=== PATIENT | male | born 2000 | race Caucasian/White ===

== ENCOUNTER 2018-07-03 22:33 | Emergency (ER) | payer MEDICAID, SELFPAY ==
[2018-07-03 22:34] VITALS: BP 158/113; PULSE 114; RESP 15; TEMP 39.1; O2SAT 96; BMI 23.1
--- NOTE | 2018-07-03 23:02 | RAD_ITS ---
We are attempting to reach Greg Rose MD to discuss findings. An addendum with communication details will be sent when the communication is complete. STUDY: X-RAY CHEST REASON FOR EXAM: Male, 17 years old. Cough, fever TECHNIQUE: PA and lateral views of the chest. COMPARISON: April 16, 2016 FINDINGS: Since prior study there is been a development of a focal infiltrate within the right lower lobe. There is no demonstrated pleural abnormality. Normal size heart. Normal mediastinum and luz. Normal visualized pulmonary arteries. Normal visualized aortic arch and descending thoracic aorta. Normal visualized thoracic spine. Normal visualized ribs, clavicles, and shoulders. There is no demonstrated abnormality of the visualized soft tissue structures of the upper abdomen. RAD/Chest PA and Lateral IMPRESSION: Findings highly consistent with right lower lobe pneumonia. Electronically Signed: Barb Fisher MD at 23:32 EDT Tel , Service support ,
[2018-07-03] MEDS: Acetaminophen 500 MG Tablet 1000 MG PO (23:09)
--- NOTE | 2018-07-03 23:09 | ED.VIS.GEN ---
History of Present Illness Chief Complaint: Fever Informant: Patient Onset: Days - 3 Context: Gradual Onset Timing: Continuous Quality: malaise Location: all over Current Severity: Moderate Maximum Severity: Moderate Worsened by: coughing Relieved by: nothing Associated Symptoms: Myalgias, chills, nonproductive cough, soreness across low chest w/ cough Narrative: Also headaches. No neck stiffness. No influenza vaccine this season. No known sick contacts. Healthy otherwise. No dyspnea. Recent Illness/Hospitalization: No Past Medical History - Allergies and Home Meds Allergies/Adverse Reactions: Allergies No Known Allergies Allergy (Verified 07/03/18 22:39) Primary Care Physician: Karen Paz MD [Primary Care Provider] - Past Medical History: None Smoking Status: Never smoker Review of Systems General: Reports: Chills, Fever, Malaise Eyes: Denies: Visual changes - bilaterally, Diplopia ENT: Denies: Bilateral ear pain, Rhinorrhea, Sore throat Cardiovascular: Denies: Chest pain, Palpitations Respiratory: Reports: Cough. Denies: Dyspnea, Dyspnea on exertion Gastrointestinal: Reports: Abdominal pain - soreness w/ coughing, Diarrhea. Denies: Nausea, Vomiting, Melena, Hematochezia Genitourinary: Denies: Dysuria, Hematuria, Frequency Musculoskeletal: Reports: Myalgias, Extremity Pain - achy. Denies: Back pain, Swelling Skin: Denies: Rash, Abrasions, Wounds Neurological: Reports: Parasthesia. Denies: Headache, Weakness, Numbness Physical Exam Vital Signs/Narrative: Vital Signs Temp Pulse Resp BP Pulse Ox 07/03/18 22:34 102.3 F H 114 H 15 158/113 H 96 Inital Vital Signs reviewed: Yes General: Well nourished, Well developed, No Acute Distress Head: Normocephalic, Atraumatic Eyes: Perrl, EOMI ENT: Moist mucous membranes, No rhinorrhea, TM's clear - and normal mastoids., Nasal congestion. Negative for: Sinus tenderness Neck: Supple - no meningismus. FROM w/o difficulty., Nontender, No lymphadenopathy Cardiovascular: Regular rate, Regular rhythm, No murmurs, Tachycardia Respiratory: No distress, Chest nontender, Rales - R base Abdomen: Soft, Nontender, Nondistended, Normal bowel sounds Back: Nontender, Normal Inspection. Negative for: CVA tenderness Extremities: Nontender, No edema. Negative for: Calf Tenderness Skin: Normal color, No rash, No Trauma Neurological: Alert, Oriented x3, Cranial nerves II-XII grossly intact, Normal Strength, Normal Sensation Psychological: Normal affect, Normal Mood Diagnostic/Tx/Re-eval Impressions Chest X-Ray 07/03/18 23:02 IMPRESSION: Findings highly consistent with right lower lobe pneumonia. Electronically Signed: Barb Fisher MD at 23:32 EDT Tel , Service support , ADDENDUM: 07/03/18 2343 IMPRESSION: Findings highly consistent with right lower lobe pneumonia. N.B. : The above information has been verbally conveyed by Barb Fisher MD to Dr. Greg Rose MD, on 07/03/2018 23:36:32 (ET). Electronically Signed: Barb Fisher MD at 23:32 EDT Tel , Service support , 07/03/18 23:02 Chest PA and Lateral [RAD] Stat 07/04/18 00:11 Mucosa - Nose Influenza Types A,B Direct FA (AFIA) - Final -- NEGATIVE Laboratory Results 07/03/18 07/03/18 07/03/18 23:55 23:55 23:55 WBC 10.9 RBC 4.28 L Hgb 12.1 L Hct 35.5 L MCV 82.9 MCH 28.3 MCHC 34.1 RDW 12.5 RDW Differential 37.9 Plt Count 281 MPV 9.2 Immature Gran % (Auto) 0.100 Neut % (Auto) 73.9 H Lymph % (Auto) 10.0 L [place] % (Auto) 14.7 H Eos % (Auto) 0.8 Baso % (Auto) 0.5 Absolute Neuts (auto) 8.0 H Absolute Lymphs (auto) 1.09 Total Counted Not Reportable Differential Comment SCANNED Platelet Estimate ADEQUATE PT 15.4 H INR 1.2 APTT 36.4 H Sodium 134 L Potassium 3.4 L Chloride 102 Carbon Dioxide 26.0 Anion Gap 6 BUN 7 Creatinine 0.81 Estim Creat Clear Calc 151.46 Est GFR (MDRD) Af Amer 157 Est GFR (MDRD) Non-Af 130 BUN/Creatinine Ratio 8.6 L Glucose 126 H Lactic Acid Calcium 8.2 L Total Bilirubin 0.80 AST 12 L ALT 13 L Alkaline Phosphatase 76 Total Protein 7.5 Albumin 3.3 Globulin 4.2 Albumin/Globulin Ratio 0.8 L Urine Color Urine Clarity Urine pH Ur Specific [place] Urine Protein Urine Glucose (UA) Urine Ketones Urine Occult Blood Urine Nitrite Urine Bilirubin Urine Urobilinogen Ur Leukocyte Esterase Urine RBC Urine WBC Ur Squamous Epith Cells Urine Bacteria Urine Mucus 07/03/18 07/04/18 23:55 00:30 WBC RBC Hgb Hct MCV MCH MCHC RDW RDW Differential Plt Count MPV Immature Gran % (Auto) Neut % (Auto) Lymph % (Auto) [place] % (Auto) Eos % (Auto) Baso % (Auto) Absolute Neuts (auto) Absolute Lymphs (auto) Total Counted Differential Comment Platelet Estimate PT INR APTT Sodium Potassium Chloride Carbon Dioxide Anion Gap BUN Creatinine Estim Creat Clear Calc Est GFR (MDRD) Af Amer Est GFR (MDRD) Non-Af BUN/Creatinine Ratio Glucose Lactic Acid 0.8 Calcium Total Bilirubin AST ALT Alkaline Phosphatase Total Protein Albumin Globulin Albumin/Globulin Ratio Urine Color Yellow Urine Clarity Sl. Cloudy Urine pH 7.0 Ur Specific [place] 1.005 Urine Protein Negative Urine Glucose (UA) Normal Urine Ketones 5 H Urine Occult Blood 50 H Urine Nitrite Negative Urine Bilirubin Negative Urine Urobilinogen Normal Ur Leukocyte Esterase Negative Urine RBC 0-5 SEEN Urine WBC 0 SEEN Ur Squamous Epith Cells 0 SEEN Urine Bacteria 0 SEEN Urine Mucus 0 SEEN - Medical Decision Making Given abnormal lung sounds/findings right lower lobe, chest x-ray was obtained in addition to an influenza. Patient appears well clinically. X-ray shows pneumonia. Septic workup ordered and pending. Antibiotics also ordered simultaneously. His workup is fairly unremarkable. His lactate is within normal limits, no significant white blood count, we did send blood cultures. He is feeling a little better after Tylenol and Toradol. His temperature has come down. His influenza is negative. We ambulated him and he did not become hypoxia are very dyspneic and he is comfortable going home with outpatient treatment. I advise close outpatient follow-up. He states he does have prescription coverage and will be able to fill an antibiotic that we prescribed him. 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 He is referred to the next doctor on the no-Doc list, Dr. Tony. ED Disposition - Plan for ED Patient: Disposition: Home or Assisted Living Diagnosis: Community acquired pneumonia, Sepsis Instructions: ED Pneumonia Adult Prescriptions: levoFLOXacin tablet [Levaquin tablet] 750 mg PO QHS #4 tab Referrals: Nic Tony DO [NON CLINICAL AFFILIATE] - (call friday for appt to be seen within next 2-5 days)
[2018-07-03] MEDS: Ketorolac 60 MG/2 ML Vial IM (23:10)
--- NOTE | 2018-07-03 23:12 | ED.DCSUM_ITS ---
History of Present Illness Chief Complaint: Fever Informant: Patient Onset: Days - 3 Context: Gradual Onset Timing: Continuous Quality: malaise Location: all over Current Severity: Moderate Maximum Severity: Moderate Worsened by: coughing Relieved by: nothing Associated Symptoms: Myalgias, chills, nonproductive cough, soreness across low chest w/ cough Narrative: Also headaches. No neck stiffness. No influenza vaccine this season. No known sick contacts. Healthy otherwise. No dyspnea. Recent Illness/Hospitalization: No Past Medical History - Allergies and Home Meds Allergies/Adverse Reactions: Allergies No Known Allergies Allergy (Verified 07/03/18 22:39) Primary Care Physician: Karen Paz MD [Primary Care Provider] - Past Medical History: None Smoking Status: Never smoker Review of Systems General: Reports: Chills, Fever, Malaise Eyes: Denies: Visual changes - bilaterally, Diplopia ENT: Denies: Bilateral ear pain, Rhinorrhea, Sore throat Cardiovascular: Denies: Chest pain, Palpitations Respiratory: Reports: Cough. Denies: Dyspnea, Dyspnea on exertion Gastrointestinal: Reports: Abdominal pain - soreness w/ coughing, Diarrhea. Denies: Nausea, Vomiting, Melena, Hematochezia Genitourinary: Denies: Dysuria, Hematuria, Frequency Musculoskeletal: Reports: Myalgias, Extremity Pain - achy. Denies: Back pain, Swelling Skin: Denies: Rash, Abrasions, Wounds Neurological: Reports: Parasthesia. Denies: Headache, Weakness, Numbness Physical Exam Vital Signs/Narrative: Vital Signs Temp Pulse Resp BP Pulse Ox 07/03/18 22:34 102.3 F H 114 H 15 158/113 H 96 Inital Vital Signs reviewed: Yes General: Well nourished, Well developed, No Acute Distress Head: Normocephalic, Atraumatic Eyes: Perrl, EOMI ENT: Moist mucous membranes, No rhinorrhea, TM's clear - and normal mastoids., Nasal congestion. Negative for: Sinus tenderness Neck: Supple - no meningismus. FROM w/o difficulty., Nontender, No lymphadenopathy Cardiovascular: Regular rate, Regular rhythm, No murmurs, Tachycardia Respiratory: No distress, Chest nontender, Rales - R base Abdomen: Soft, Nontender, Nondistended, Normal bowel sounds Back: Nontender, Normal Inspection. Negative for: CVA tenderness Extremities: Nontender, No edema. Negative for: Calf Tenderness Skin: Normal color, No rash, No Trauma Neurological: Alert, Oriented x3, Cranial nerves II-XII grossly intact, Normal Strength, Normal Sensation Psychological: Normal affect, Normal Mood Diagnostic/Tx/Re-eval Impressions Chest X-Ray 07/03/18 23:02 IMPRESSION: Findings highly consistent with right lower lobe pneumonia. Electronically Signed: Barb Fisher MD at 23:32 EDT Tel , Service support , ADDENDUM: 07/03/18 2343 IMPRESSION: Findings highly consistent with right lower lobe pneumonia. N.B. : The above information has been verbally conveyed by Barb Fisher MD to Dr. Greg Rose MD, on 07/03/2018 23:36:32 (ET). Electronically Signed: Barb Fisher MD at 23:32 EDT Tel , Service support , 07/03/18 23:02 Chest PA and Lateral [RAD] Stat 07/04/18 00:11 Mucosa - Nose Influenza Types A,B Direct FA (AFIA) - Final -- NEGATIVE Laboratory Results 07/03/18 07/03/18 07/03/18 23:55 23:55 23:55 WBC 10.9 RBC 4.28 L Hgb 12.1 L Hct 35.5 L MCV 82.9 MCH 28.3 MCHC 34.1 RDW 12.5 RDW Differential 37.9 Plt Count 281 MPV 9.2 Immature Gran % (Auto) 0.100 Neut % (Auto) 73.9 H Lymph % (Auto) 10.0 L [place] % (Auto) 14.7 H Eos % (Auto) 0.8 Baso % (Auto) 0.5 Absolute Neuts (auto) 8.0 H Absolute Lymphs (auto) 1.09 Total Counted Not Reportable Differential Comment SCANNED Platelet Estimate ADEQUATE PT 15.4 H INR 1.2 APTT 36.4 H Sodium 134 L Potassium 3.4 L Chloride 102 Carbon Dioxide 26.0 Anion Gap 6 BUN 7 Creatinine 0.81 Estim Creat Clear Calc 151.46 Est GFR (MDRD) Af Amer 157 Est GFR (MDRD) Non-Af 130 BUN/Creatinine Ratio 8.6 L Glucose 126 H Lactic Acid Calcium 8.2 L Total Bilirubin 0.80 AST 12 L ALT 13 L Alkaline Phosphatase 76 Total Protein 7.5 Albumin 3.3 Globulin 4.2 Albumin/Globulin Ratio 0.8 L Urine Color Urine Clarity Urine pH Ur Specific [place] Urine Protein Urine Glucose (UA) Urine Ketones Urine Occult Blood Urine Nitrite Urine Bilirubin Urine Urobilinogen Ur Leukocyte Esterase Urine RBC Urine WBC Ur Squamous Epith Cells Urine Bacteria Urine Mucus 07/03/18 07/04/18 23:55 00:30 WBC RBC Hgb Hct MCV MCH MCHC RDW RDW Differential Plt Count MPV Immature Gran % (Auto) Neut % (Auto) Lymph % (Auto) [place] % (Auto) Eos % (Auto) Baso % (Auto) Absolute Neuts (auto) Absolute Lymphs (auto) Total Counted Differential Comment Platelet Estimate PT INR APTT Sodium Potassium Chloride Carbon Dioxide Anion Gap BUN Creatinine Estim Creat Clear Calc Est GFR (MDRD) Af Amer Est GFR (MDRD) Non-Af BUN/Creatinine Ratio Glucose Lactic Acid 0.8 Calcium Total Bilirubin AST ALT Alkaline Phosphatase Total Protein Albumin Globulin Albumin/Globulin Ratio Urine Color Yellow Urine Clarity Sl. Cloudy Urine pH 7.0 Ur Specific [place] 1.005 Urine Protein Negative Urine Glucose (UA) Normal Urine Ketones 5 H Urine Occult Blood 50 H Urine Nitrite Negative Urine Bilirubin Negative Urine Urobilinogen Normal Ur Leukocyte Esterase Negative Urine RBC 0-5 SEEN Urine WBC 0 SEEN Ur Squamous Epith Cells 0 SEEN Urine Bacteria 0 SEEN Urine Mucus 0 SEEN - Medical Decision Making Given abnormal lung sounds/findings right lower lobe, chest x-ray was obtained in addition to an influenza. Patient appears well clinically. X-ray shows pneumonia. Septic workup ordered and pending. Antibiotics also ordered simultaneously. His workup is fairly unremarkable. His lactate is within normal limits, no significant white blood count, we did send blood cultures. He is feeling a little better after Tylenol and Toradol. His temperature has come down. His influenza is negative. We ambulated him and he did not become hypoxia are very dyspneic and he is comfortable going home with outpatient treatment. I advise close outpatient follow-up. He states he does have prescription coverage and will be able to fill an antibiotic that we prescribed him. 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 He is referred to the next doctor on the no-Doc list, Dr. Tony. ED Disposition - Plan for ED Patient: Disposition: Home or Assisted Living Diagnosis: Community acquired pneumonia, Sepsis Instructions: ED Pneumonia Adult Prescriptions: levoFLOXacin tablet [Levaquin tablet] 750 mg PO QHS #4 tab Referrals: Nic Tony DO [NON CLINICAL AFFILIATE] - (call friday for appt to be seen within next 2-5 days)
[2018-07-04 00:10] VITALS: O2SAT 98
[2018-07-04 00:12] LABS: Absolute Lymphocyte Count 1.09 X10^3/ul (0.83-4.51); Basophil# 0.05 X10^3/uL; Basophil% 0.5 % (0-1); Differential Indicated SCAN CRITERIA MET; Eosinophil# 0.09 X10^3/uL; Eosinophils% 0.8 % (0-5); Hematocrit 35.5 % (40-54); Hemoglobin 12.1 g/dl (13.0-16.5); Lymphocyte # 1.09 X10^3/ul (4.0); Mean Corp Hgb Conc 34.1 g/gl (32-36); Mean Corpuscular Hgb 28.3 pg (27.0-32.0); Mean Corpuscular Volume 82.9 fL (80-94); Mean Platelet Vol. 9.2 fl (6.2-12.0); Monocyte% 14.7 % (0-10); Neutrophil # 8.02 X10^3/uL (2.7-7.7); Neutrophil % 73.9 % (47-70); POSITIVE COUNT NO; POSITIVE DIFFERENTIAL YES; POSITIVE MORPHOLOGY NO; Platelet Count 281 K/mm3 (150-450); RBC Distribution Width CV 12.5 % (11.6-14.6); RBC Distribution Width SD 37.9 fl (35.1-43.9); Red Blood Count 4.28 M/mm3 (4.6-6.2); White Blood Count 10.9 K/mm3 (4.4-11.0)
[2018-07-04] MEDS: 0.9% Normal Saline 1,000 ML 150 ML IV (00:22)
[2018-07-04] MEDS: levoFLOXacin IV 750 MG/150 ML BAG 100 MG IV (00:22)
[2018-07-04 00:23] LABS: ALB/GLOB Ratio 0.8 RATIO (0.9-2.4); AST(SGOT) 12 U/L (15-37); Alanine Aminotransfer ALT/SGPT 13 U/L (16-61); Albumin, Serum 3.3 g/dL (3.2-5.0); Alkaline Phosphatase 76 U/L (45-117); Anion Gap 6 (5-15); BUN 7 mg/dL (7-18); BUN/Creat Ratio 8.6 RATIO (10-20); Calcium,Total 8.2 mg/dL (8.5-10.1); Chloride 102 mmol/L (98-107); Creatinine, Serum 0.81 mg/dL (0.70-1.30); EST Glomerular Filtration Rate 130 mL/min (>60); Est Glom Filt Rate - Afr Amer 157 mL/min (>60); Estimated Creatinine Clearance 151.46 ml/min; Globulin 4.2 g/dL (2.2-4.2); Glucose 126 mg/dL (74-106); Potassium 3.4 mmol/L (3.5-5.1); Protein, Total 7.5 g/dL (6.4-8.2); Sodium Level 134 mmol/L (136-145)
[2018-07-04 00:28] LABS: Lactic Acid 0.8 mmol/L (0.4-2.0)
[2018-07-04 00:29] VITALS: BP 137/87; BP 139/87; PULSE 101; PULSE 102; RESP 18; TEMP 37.4; O2SAT 96
[2018-07-04 00:30] LABS: International Normalized Ratio 1.2; Prothrombin Time (Protime)PT. 15.4 SECONDS (11.7-14.9)
[2018-07-04 00:31] LABS: Partial Thromboplast Time 36.4 Seconds (24.1-36.2)
[2018-07-04 00:44] LABS: Bacteria 0 SEEN /hpf (None Seen); Mucous, Urine 0 SEEN /hpf (<or=2+); Squamous Epithelial Cells - UA 0 SEEN /hpf (0-5); White Blood Cells 0 SEEN /hpf (0-5)
[2018-07-04 00:51] LABS: Color, Urine Yellow (Yellow); Glucose, Dipstick Normal (Normal); Ketone-Dipstick 5 mg/dl (Negative); Leukocyte Esterase-Dipstick Negative /ul (Negative); Nitrite-Dipstick Negative (Negative); Occult Blood-Urine 50 /ul (Negative); Protein-Dipstick Negative (Negative); Specific Gravity, Urine 1.005 (1.002-1.030); Urine Bilirubin Dipstick Negative (Negative); Urine Clarity Sl. Cloudy (Clear); Urine Urobilinogen Normal (Normal)
[2018-07-04 01:00] VITALS: BP 140/82; PULSE 97; RESP 20; O2SAT 95
[2018-07-04 01:14] LABS: Red Blood Cells-Urine 0-5 SEEN /hpf (0-5)
[2018-07-04 01:26] LABS: Differential Comment SCANNED; Platelet Estimate ADEQUATE (ADEQ)
[2018-07-04 01:32] VITALS: O2SAT 97
[2018-07-04 02:17] VITALS: BP 143/88; PULSE 97; RESP 16; O2SAT 98
== END 2018-07-04 02:19 | disposition home or self-care (01) ==
PROVIDERS: Emergency Provider Emergency Medicine; Family Provider Pediatrics; PCP Pediatrics
DX: A41.9 Sepsis, unspecified organism (principal); J18.9 Pneumonia, unspecified organism
CPT/HCPCS: 71046; 80053; 81001; 83605; 85025; 85610; 85730; 87040; 87086; 87088; 87804; 96365; 96366; 96372; 99284; J7030; A4216

== ENCOUNTER 2020-09-18 19:55 | Emergency (ER) | payer MEDICARE, MEDICAID, SELFPAY ==
[2020-09-18 19:55] VITALS: BP 159/94; PULSE 86; RESP 15; TEMP 36; O2SAT 96; BMI 24.8
[2020-09-18 20:12] LABS: Absolute Lymphocyte Count 2.61 X10^3/uL (0.83-4.51); Absolute Neutrophil Count 6.1 X10^3/uL (2.0-7.7); Basophil# 0.08 X10^3/uL; Basophil% 0.8 % (0-1); Eosinophil# 0.28 X10^3/uL; Eosinophils% 2.8 % (0-5); Hematocrit 44.3 % (40-54); Hemoglobin 14.7 g/dL (13.0-16.5); Lymphocyte # 2.61 X10^3/ul (0.83-4.51); Lymphocyte % 26.3 % (19-41); Mean Corp Hgb Conc 33.2 g/dL (32-36); Mean Corpuscular Hgb 28.4 pg (27.0-32.0); Mean Corpuscular Volume 85.7 fL (80-94); Mean Platelet Vol. 10.1 fl (6.2-12.0); Monocyte% 8.1 % (0-10); NRBC Flagged by Analyzer 0 % (0-5); Neutrophil # 6.13 X10^3/uL (2.7-7.7); Neutrophil % 61.8 % (47-70); Platelet Count 305 K/mm3 (150-450); RBC Distribution Width CV 12.5 % (11.6-14.6); RBC Distribution Width SD 39.4 fl (35.1-43.9); Red Blood Count 5.17 M/mm3 (4.6-6.2); White Blood Count 9.9 K/mm3 (4.4-11.0)
[2020-09-18 20:24] LABS: Anion Gap 7 (5-15); BUN 19 mg/dL (7-18); BUN/Creat Ratio 20.3 RATIO (10-20); Calcium,Total 9.1 mg/dL (8.5-10.1); Chloride 105 mmol/L (98-107); Creatinine, Serum 0.94 mg/dL (0.70-1.30); EST Glomerular Filtration Rate 107 mL/min (>60); Est Glom Filt Rate - Afr Amer 130 mL/min (>60); Glucose 168 mg/dL (74-106); Potassium 3.5 mmol/L (3.5-5.1); Sodium Level 138 mmol/L (136-145)
--- NOTE | 2020-09-18 21:16 | US_ITS ---
STUDY: ABDOMINAL ULTRASOUND - RIGHT UPPER QUADRANT REASON FOR VISIT: Male, 19 years old PAIN-midline after eating TECHNIQUE: Ultrasound evaluation of the right upper quadrant was performed with real-time and static jimenez-scale imaging. TECHNICAL QUALITY: Adequate. COMPARISON: None. FINDINGS: Liver: The liver measures 15.3 cm. There is normal echogenicity of the liver. The bile ducts are within normal limits. There is hepatic color flow. The direction of portal flow is hepatopetal. There is no demonstrated mass lesion. Gallbladder: Normal distended gallbladder. The gallbladder wall measures 1.6 mm. There is a negative sonographic Villaseñor''s sign. There is no pericholecystic fluid. There are no gallstones. Common Bile Duct (C.B.D.): The common bile duct measures 2.9 mm. Pancreas: Normal size of the head, body and tail of the pancreas. There is normal echogenicity of the pancreas. There is no demonstrated pancreatic mass or cyst. Right Kidney: Normal size of the right kidney. The right kidney measures 11.4 cm in length. Normal renal cortex. The There is no demonstrated renal mass or cyst. There is no right hydronephrosis. US/Gallbladder IMPRESSION: Within normal limits right upper quadrant ultrasound examination. Electronically Signed: Valerie Mijares MD at 22:58 EDT Tel , Service support ,
[2020-09-18 21:38] LABS: Bacteria 0 SEEN /hpf (None Seen); Mucous, Urine 0 SEEN /hpf (<or=2+); White Blood Cells 0 SEEN /hpf (0-5)
[2020-09-18 21:40] LABS: Color, Urine Yellow (Yellow); Glucose, Dipstick 100 mg/dl (Normal); Ketone-Dipstick 5 mg/dl (Negative); Leukocyte Esterase-Dipstick Negative /ul (Negative); Nitrite-Dipstick Negative (Negative); Occult Blood-Urine 25 /ul (Negative); Protein-Dipstick Negative (Negative); Specific Gravity, Urine 1.025 (1.002-1.030); Urine Bilirubin Dipstick Negative (Negative); Urine Clarity Clear (Clear); Urine Urobilinogen Normal (Normal)
[2020-09-18 21:47] LABS: Red Blood Cells-Urine 0-5 SEEN /hpf (0-5); Squamous Epithelial Cells - UA 0-5 SEEN /hpf (0-5)
[2020-09-18 21:51] LABS: AST(SGOT) 10 U/L (15-37); Alanine Aminotransfer ALT/SGPT 13 U/L (16-61); Albumin, Serum 4.1 g/dL (3.2-5.0); Alkaline Phosphatase 107 U/L (45-117); Globulin 4.1 g/dL (2.2-4.2); Lipase 65 U/L (73-393); Protein, Total 8.2 g/dL (6.4-8.2)
[2020-09-18] MEDS: Famotidine 200 MG/20 ML MDV 20 MG in 0.9% Normal Saline (Pres. free 8 ML 300 MG IV (21:56)
[2020-09-18] MEDS: 0.9% Normal Saline 1,000 ML 1000 ML IV (21:56)
[2020-09-18] MEDS: Ondansetron 4 MG/2 ML Vial IV (21:57)
[2020-09-18 21:59] VITALS: BP 134/78; PULSE 84; RESP 16; O2SAT 98
[2020-09-18 22:01] VITALS: BP 134/78; PULSE 84; RESP 16; TEMP 36; O2SAT 98
--- NOTE | 2020-09-18 23:05 | EDS_ITS ---
HPI History of Present Illness Chief Complaint: Abd Pain Narrative Narrative: Presents 2-week history of epigastric pain and mid abdominal pain worsening over the past 3 days. States loose stools. Nonbloody. Denies NSAID therapy. Denies history of similar. No history of EGD or colonoscopy in the past. Nausea. No fevers. No urinary symptoms. Prior similar symptoms: No PFSH PFSH Home Medications omeprazole 40 mg PO DAILY #30 cap 09/18/20 [Rx Last Taken Unknown] sucralfate [Carafate] 1 g PO Q6H #60 tab 09/18/20 [Rx Last Taken Unknown] Allergy/AdvReac Type Severity Reaction Status Date / Time No Known Allergies Allergy Verified 09/18/20 19:57 Social History Smoking Status: Never smoker ROS ROS ED Constitutional Constitutional ED: Denies chills, fever(s) or sweats Eyes Eyes: Denies change in vision ENT ENT ED: Denies dysphagia or sore throat Cardiovascular Cardiovascular: Denies chest pain, leg edema, palpitations or racing heartbeat Respiratory/Chest Respiratory/Chest: Denies cough, dyspnea or dyspnea on exertion Gastrointestinal Gastrointestinal: Reports abdominal pain and nausea; Denies diarrhea or vomiting Genitourinary Genitourinary ED: Denies dysuria, hematuria or urinary frequency Musculoskeletal Musculoskeletal: Denies back pain, extremity pain or neck pain Integumentary Denies rash or wounds Neurologic Neurologic: Denies headache(s), paresthesias or weakness EXAM Physical Exam Const Vital Signs: 09/18/20 19:55 09/18/20 21:59 09/18/20 22:01 Temperature 96.8 F L 96.8 F L Temperature Source Temporal Temporal Pulse Rate 86 84 84 Respiratory Rate 15 16 16 Blood Pressure 159/94 H 134/78 H 134/78 H Blood Pressure Mean 115 96 96 Pulse Ox 96 98 98 Oxygen Delivery Method Room Air Room Air Room Air Positive well nourished and well developed General Appearance ED: well developed and NAD HEENT Reports moist mucous membranes normocephalic and atraumatic Eyes PERRL, EOMs intact bilaterally and conjunctivae normal General Eye ED: Yes normal appearance of both eyes Neck no lymphadenopathy and supple General: Negative for tenderness Chest Wall Chest: Negative for tenderness Resp normal respiratory effort and normal air movement Effort and Inspection: symmetric chest movement; Negative for respiratory distress Cardio regular rate, regular rhythm and no murmurs Peripheral Pulses: pulses 2+ throughout GI normal to inspection, nondistended, normoactive bowel sounds GI Narrative: Tender palpation epigastric right upper quadrant. No guarding or rebound. Negative McBurney's tenderness. Palpation: Negative for guarding or rebound tenderness present Back/Spine no CVA tenderness and no thoracic nor lumbar tenderness Extremity normal to inspection General Extremety ED: Negative for edema or tenderness General Extremity: Negative for edema Neuro oriented x3 and no sensory deficits noted Sensorium / Orientation: awake and alert Skin no rashes or lesions noted and no wounds MDM MDM MDM Narrative Medical decision making narrative: Patient nonsurgical abdomen tender epigastric and right upper quadrant. Abdominal labs drawn normal urine negative. He was given Pepcid Zofran fluids. Right upper quadrant ultrasound obtained within normal limits with no acute findings. States he did have some improvement of symptoms additional GI cocktail. Reevaluation of abdomen remains benign. He will be placed on a PPI and Carafate. Is given follow-up as an outpatient. Signs of discussed return. All questions were answered. Lab Data Labs: Laboratory Results - last 24 hr 09/18/20 09/18/20 09/18/20 20:04 20:04 20:04 WBC 9.9 RBC 5.17 Hgb 14.7 Hct 44.3 MCV 85.7 MCH 28.4 MCHC 33.2 RDW Std Deviation 39.4 RDW Coeff of [place] 12.5 Plt Count 305 MPV 10.1 Immature Gran % (Auto) 0.200 Neut % (Auto) 61.8 Lymph % (Auto) 26.3 [place] % (Auto) 8.1 Eos % (Auto) 2.8 Baso % (Auto) 0.8 Absolute Neuts (auto) 6.1 Absolute Lymphs (auto) 2.61 Nucleated RBC % 0 Sodium 138 Potassium 3.5 Chloride 105 Carbon Dioxide 26.0 Anion Gap 7 BUN 19 H Creatinine 0.94 Estim Creat Clear Calc 132.40 Est GFR (MDRD) Af Amer 130 Est GFR (MDRD) Non-Af 107 BUN/Creatinine Ratio 20.3 H Glucose 168 H Calcium 9.1 Total Bilirubin 0.40 Direct Bilirubin 0.10 AST 10 L ALT 13 L Alkaline Phosphatase 107 Total Protein 8.2 Albumin 4.1 Globulin 4.1 Lipase 65 L Urine Color Urine Clarity Urine pH Ur Specific [place] Urine Protein Urine Glucose (UA) Urine Ketones Urine Occult Blood Urine Nitrite Urine Bilirubin Urine Urobilinogen Ur Leukocyte Esterase Urine RBC Urine WBC Ur Squamous Epith Cells Urine Bacteria Urine Mucus 09/18/20 21:30 WBC RBC Hgb Hct MCV MCH MCHC RDW Std Deviation RDW Coeff of [place] Plt Count MPV Immature Gran % (Auto) Neut % (Auto) Lymph % (Auto) [place] % (Auto) Eos % (Auto) Baso % (Auto) Absolute Neuts (auto) Absolute Lymphs (auto) Nucleated RBC % Sodium Potassium Chloride Carbon Dioxide Anion Gap BUN Creatinine Estim Creat Clear Calc Est GFR (MDRD) Af Amer Est GFR (MDRD) Non-Af BUN/Creatinine Ratio Glucose Calcium Total Bilirubin Direct Bilirubin AST ALT Alkaline Phosphatase Total Protein Albumin Globulin Lipase Urine Color Yellow Urine Clarity Clear Urine pH 6.0 Ur Specific [place] 1.025 Urine Protein Negative Urine Glucose (UA) 100 H Urine Ketones 5 H Urine Occult Blood 25 H Urine Nitrite Negative Urine Bilirubin Negative Urine Urobilinogen Normal Ur Leukocyte Esterase Negative Urine RBC 0-5 SEEN Urine WBC 0 SEEN Ur Squamous Epith Cells 0-5 SEEN Urine Bacteria 0 SEEN Urine Mucus 0 SEEN Radiography Diagnostic Testing: Radiology Impression Gallbladder Ultrasound 09/18/20 21:16 IMPRESSION: Within normal limits right upper quadrant ultrasound examination. Electronically Signed: Valerie Mijares MD at 22:58 EDT Tel , Service support , Discharge Plan Triage Chief Complaint: Abd Pain ED Provider: Erasto Costello Dx/Rx/DC Orders Clinical Impression: Gastritis, Abdominal pain Instructions: ED Gastritis (Adult) Prescriptions: New sucralfate [Carafate] 1 gram tablet 1 g PO Q6H Qty: 60 RF: 0 omeprazole 40 mg capsule,delayed release(DR/EC) 40 mg PO DAILY Qty: 30 RF: 0 Primary Care Provider: Care Physician,No Primary Referrals: Alex Starks MD [STAFF PHYSICIAN] - 1-2 Weeks Shirley Boston [NON-STAFF] - 1-2 Weeks Care Physician,No Primary [Primary Care Provider] - Disposition Disposition: Home, self care
[2020-09-18] MEDS: Mag Hydrox/Al Hydrox/Simeth 30 ML UDC PO (23:11)
== END 2020-09-18 23:20 | disposition home or self-care (01) ==
PROVIDERS: Emergency Provider Emergency Medicine
DX: K29.70 Gastritis, unspecified, without bleeding (principal)
CPT/HCPCS: 76705; 80048; 80076; 81001; 83690; 85025; 96365; 96375; 99284; J7030; A4216; J2405; J3490

== ENCOUNTER 2021-11-14 14:14 | Emergency (ER) | payer OTHER, MEDICARE, MEDICAID, SELFPAY ==
[2021-11-14 14:15] VITALS: BP 155/123; PULSE 89; RESP 16; TEMP 36.4; O2SAT 100; BMI 20.9
--- NOTE | 2021-11-14 14:25 | EX.ED.UPPERE ---
HPI History of Present Illness HPI Narrative: Patient presents with left friction to his right long finger that occurred today while he was at work. Patient accidentally cut his finger with a razor knife while he was attempting to open a cardboard box. Patient denies any paresthesias or weakness. Patient states the bleeding has been persistent. Patient is unsure of his last tetanus. Patient describes his pain as aching. Patient states nothing makes it worse and nothing makes it better. Chief Complaint: Laceration Informant: patient Occured/Mechanism Comment: Cut with a razor knife Onset/Context/Timing Onset: Today Context: Sudden Onset Timing: Continuous Quality of Pain: Aching Location: Right long finger Worsened by: Nothing Relieved by: Nothing Associated Symptoms Associated Symptoms: Negative for Parasthesia, Weakness or Loss of Funtion Narrative Tetanus Immunization: Unknown PFSH PFS Medical History Anxiety Non-smoker Home Medications metformin 1,000 mg tablet 1,000 mg PO DAILY 11/14/21 [History Last Taken Unknown] Allergy/AdvReac Type Severity Reaction Status Date / Time No Known Allergies Allergy Verified 11/14/21 14:14 Social History Smoking Status: Never smoker ROS ROS ED Constitutional Constitutional ED: Denies chills or fever(s) Eyes Eyes: Denies blurry vision or change in vision ENT ENT ED: Denies rhinorrhea or sore throat Cardiovascular Cardiovascular: Denies chest pain or palpitations Respiratory/Chest Respiratory/Chest: Denies cough or dyspnea Gastrointestinal Gastrointestinal: Denies nausea or vomiting Genitourinary Genitourinary ED: Denies dysuria or hematuria Musculoskeletal Musculoskeletal: Denies back pain or neck pain Integumentary Denies abscess or rash Neurologic Neurologic: Denies headache(s) or weakness Allergic/Immunologic Allergic/Immunologic ED: Denies mouth swelling or urticaria EXAM Physical Exam Const Vital Signs: 11/14/21 14:15 Temperature 97.6 F L Temperature Source Temporal Pulse Rate 89 Respiratory Rate 16 Blood Pressure 155/123 H Blood Pressure Mean 133 Pulse Ox 100 Oxygen Delivery Method Room Air Positive well nourished and well developed General Appearance ED: well developed and NAD HEENT Reports moist mucous membranes Neck full ROM Extremity Extremity Narrative: There is a 1.2 cm full-thickness linear laceration of the tip of the distal phalanx of the right long finger. There is mild gapping of the wound margins. There is some mild bleeding noted. There are no foreign bodies noted. Sensation was intact to light touch in all digits. Capillary refill was less than 2 seconds in all digits. Strength is 5/5 in flexion and extension of the MP, PIP, and DIP joints. Neuro oriented x3, CN's II-XII intact bilaterally, moves all extremities, no focal motor deficits and no sensory deficits noted Sensorium / Orientation: alert Motor Exam: strength 5/5 throughout Psych mental status grossly normal MDM MDM MDM Narrative Medical decision making narrative: Patient was given a tetanus booster. The wound was cleaned and irrigated with copious amounts of normal saline. The wound was anesthetized with 1% plain lidocaine via digital block. The wound was closed with 2 simple interrupted #5-0 nylon sutures under sterile technique. Patient tolerated the procedure well. Bacitracin dressing was applied. Patient was instructed to keep the area clean. Patient was instructed to follow-up with his primary care physician or the [facility] in 5 days for wound recheck and suture removal. Patient understood and was agreeable with the plan. All questions were answered. Procedures Lacerations Right long finger: Length: 1.2 cm Depth: Skin Shape: Linear Prep: Sterile Conditions and Chlorhexadine Laceration repair: Digital block, Irrigated, Lidocaine, Skin sutures and Wound explored Number of Sutures/[place]: 2 Suture Information: Ethilon and 5-0 Discharge Plan Triage Chief Complaint: Laceration ED Provider: Taurus Ramos Dx/Rx/DC Orders Clinical Impression: Laceration of right middle finger w/o foreign body w/o damage to nail, Tetanus-diphtheria vaccination administered at current visit Instructions: ED Laceration, Hand: All Closures Prescriptions: No Action metformin 1,000 mg tablet 1,000 mg PO DAILY Label Comments: take 1 tablet by mouth twice a day with meals Stand Alone Forms: Work Status Form Primary Care Provider: Madelyn Watts Referrals: [facility] [Non-Staff] - 5 Days for suture removal Madelyn Watts PA [Primary Care Provider] - 5 Days for suture removal Disposition Disposition: Home, Self Care Discharge Date/Time: 11/14/21 15:38
--- NOTE | 2021-11-14 14:35 | ED.RN ---
PT EDUCATED THAT POST DISCHARGE HE NEEDS TO BE SEEN AT THE [facility] FOR A DRUG SCREEN FOR WORKMANS COMP.
[2021-11-14] MEDS: Lidocaine 1% (20 ml mdv) 20 ML Vial INFILT (14:49)
[2021-11-14] MEDS: Diphth,Pertuss(Acell),Tet Vac 0.5 ML Vial IM (14:49)
[2021-11-14 15:38] VITALS: BP 126/78; PULSE 85; RESP 15; O2SAT 99
== END 2021-11-14 15:38 | disposition home or self-care (01) ==
LOC: ED 14:46
PROVIDERS: Emergency Provider Emergency Medicine; PCP Physician Assistant; Visit Provider Emergency Medicine
DX: S61.212A Laceration without foreign body of right middle finger without damage to nail, initial encounter (principal); Z23 Encounter for immunization; W29.1XXA Contact with electric knife, initial encounter; Y99.0 Civilian activity done for income or pay
CPT/HCPCS: 12001; 90471; 90715; 99283

== ENCOUNTER 2023-03-16 12:34 | Emergency (ER) | payer MEDICARE, MEDICAID, SELFPAY ==
[2023-03-16 12:36] VITALS: BP 153/109; PULSE 108; RESP 18; TEMP 36.6; O2SAT 98; BMI 22.7
--- NOTE | 2023-03-16 12:46 | EX.ED.DYSGE1 ---
HPI History of Present Illness Chief Complaint: Sore Throat Detail of Chief Complaint: Sore throat Informant: patient Narrative Narrative: Patient presents to the emergency department with complaint of a sore throat that started 5 days ago. Patient states that he was exposed to somebody's family that recently was diagnosed with strep. Patient denies any fever or chills or sweats. He denies any cough. He denies ear pain. Denies vomiting or diarrhea. He denies body aches. Patient unsure of his last tetanus shot. Patient states that he cut his left index finger on the lid of a can yesterday. PFSH PFSH Medical History Anxiety Diabetes Non-smoker Home Medications metformin 1,000 mg tablet 1,000 mg PO DAILY 11/14/21 [History Last Taken Unknown] Allergy/AdvReac Type Severity Reaction Status Date / Time No Known Allergies Allergy Verified 03/16/23 12:35 Social History Smoking Status: Current every day smoker tobacco type: e-cigarettes ROS ROS ED Review of Systems ROS Unobtainable: other Constitutional Constitutional ED: Reports lethargy; Denies chills, fever(s), sweats or weight loss Eyes Eyes: Denies blurry vision, change in vision or diplopia ENT ENT ED: Reports sore throat; Denies rhinorrhea Cardiovascular Cardiovascular: Denies chest pain, orthopnea or racing heartbeat Respiratory/Chest Respiratory/Chest: Denies cough, dyspnea, dyspnea on exertion, orthopnea or sputum Gastrointestinal Gastrointestinal: Denies abdominal pain, diarrhea, nausea or vomiting Genitourinary Genitourinary ED: Denies dysuria, hematuria or urinary frequency Musculoskeletal Musculoskeletal: Denies arthralgias, back pain, myalgias or neck pain Integumentary Reports other Details: Laceration left index finger ; Denies abscess, Abrasions or rash Neurologic Neurologic: Denies headache(s) or weakness Psychiatric Psychiatric: Denies anxiety, depression or suicidal thoughts Endocrine Endocrinology: Denies polydipsia, polyphagia or polyuria Hematologic/Lymphatic Hematologic/Lymphatic: Denies easy bleeding, easy bruising or lymphadenopathy Allergic/Immunologic Allergic/Immunologic ED: Denies mouth swelling, tongue swelling or urticaria EXAM Physical Exam Const Vital Signs: 03/16/23 12:36 Temperature 97.8 F Temperature Source Temporal Pulse Rate 108 H Respiratory Rate 18 Blood Pressure 153/109 H Blood Pressure Mean 123 Pulse Ox 98 Oxygen Delivery Method Room Air Positive well nourished and well developed General Appearance ED: well developed and NAD HEENT Reports TM's clear and moist mucous membranes HEENT Narrative: Mild pharyngeal erythema. No exudates noted. Uvula midline. No significant cervical adenopathy. normocephalic and atraumatic; Negative for trauma or tenderness Tympanic Membrane ED: Yes TM's clear Eyes PERRL and EOMs intact bilaterally General Eye ED: Negative for pale conjunctiva or scleral icterus Neck no lymphadenopathy, supple and no JVD General: Negative for tenderness Chest Wall inspection of chest normal and palpation of chest normal Chest: Negative for tenderness Resp normal respiratory effort and clear to auscultation bilaterally Effort and Inspection: Negative for respiratory distress or pain with movement Auscultation: Negative for rhonchi, wheezes or diminished lung sounds Cardio regular rate, regular rhythm, S1 normal heart sound, S2 normal heart sound and no murmurs Peripheral Pulses: pulses 2+ throughout GI normal to inspection, nondistended, normoactive bowel sounds, soft to palpation, non-tender, non-distended and no masses Back/Spine no CVA tenderness and no thoracic nor lumbar tenderness Extremity normal to inspection Extremity Narrative: Left index finger-patient has a 2 cm flap-like laceration over the DIP dorsally and laterally. No significant active bleeding. He is got good range of motion. He is neurovascular intact. General Extremety ED: Negative for edema General Extremity: Negative for edema Neuro oriented x3, CN's II-XII intact bilaterally, no sensory deficits noted and gait normal Sensorium / Orientation: awake, alert, oriented to person, oriented to place and oriented to time Motor Exam: strength 5/5 throughout and strength abnormal Psych mental status grossly normal Skin no rashes or lesions noted and no wounds MDM MDM MDM Narrative Medical decision making narrative: We will obtain a rapid strep screen. His laceration of his finger is not amenable to any type of suture repair as it occurred yesterday. Patient's strep screen returned negative for strep. At this point suspect likely viral pharyngitis. Patient advised to follow-up with his primary care physician 3 to 5 days. He understands a culture was sent and we will call him if it comes back positive. Clinically he looks well and clinically exam does not look like strep throat. Lab Data Attestation: I reviewed the patient's lab results. Discharge Plan Triage Chief Complaint: Sore Throat Other Complaint: Laceration ED Provider: Rayshawn Ramirez Dx/Rx/DC Orders Clinical Impression: Laceration of left index finger, Acute viral pharyngitis Instructions: ED Laceration, Hand: All Closures, ED Pharyngitis, Viral Prescriptions: No Action metformin 1,000 mg tablet 1,000 mg PO DAILY Patient Comments: take 1 tablet by mouth twice a day with meals Primary Care Provider: Madelyn Watts Referrals: Madelyn Watts PA [Primary Care Provider] - 3-5 Days Disposition Disposition: Home, Self Care Discharge Date/Time: 03/16/23 13:26
[2023-03-16] MEDS: Diphth,Pertuss(Acell),Tet Vac 0.5 ML Vial IM (13:02)
== END 2023-03-16 13:26 | disposition home or self-care (01) ==
PROVIDERS: Emergency Provider Emergency Medicine; PCP Physician Assistant; Visit Provider Emergency Medicine
DX: J02.8 Acute pharyngitis due to other specified organisms (principal); E11.9 Type 2 diabetes mellitus without complications; S61.211A Laceration without foreign body of left index finger without damage to nail, initial encounter; W26.8XXA Contact with other sharp object(s), not elsewhere classified, initial encounter; Z79.84 Long term (current) use of oral hypoglycemic drugs; F17.290 Nicotine dependence, other tobacco product, uncomplicated
CPT/HCPCS: 87880; 90471; 90715; 99283